=== PATIENT | male | born 2000 | race Hispanic/Latino ===

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

== ENCOUNTER 2022-10-03 05:23 | Emergency (ER) | payer MEDICAID, OTHER ==
[~2022-10-03] VITALS: Ht 177.8 cm; Wt 79.4 kg
[2022-10-03] MEDS ORDERED: FAMOTIDINE 20MG VIAL IV ONE (08:30)
[2022-10-03 08:36] LABS: BASOPHILS % (AUTO) 0.8 % (0.0-5.0); EOSINOPHILS % (AUTO) 3.8 % (0.0-8.0); MEAN CORPUSCULAR HEMOGLOBIN 29.7 pg (27.0-33.0); MEAN CORPUSCULAR VOLUME 87.6 fL (79-99); MONOCYTES % (AUTO) 6.2 % (3.0-13.0); NEUTROPHILS % (AUTO) 44.7 % (40.0-77.0); PLATELET COUNT (AUTO) 260 K/uL (130-400); RED BLOOD CELL COUNT(AUTO) 5.48 MIL/uL (4.50-6.20); RED CELL DISTRIBUTION WIDTH 11.9 % (11.0-15.5); WHITE BLOOD COUNT (AUTO) 7.9 K/uL (4.8-10.8)
[2022-10-03] MEDS: 0.9%NACL 1000ML 1,000 ML IV SCH ×2 (08:50→10:35)
[2022-10-03] MEDS ORDERED: 0.9%NACL 1000ML 1,000 ML IV SCH (09:00)
[2022-10-03 09:07] LABS: ALANINE AMINOTRANSFERASE 120 U/L (12-78); ALBUMIN 4.2 g/dL (3.5-5.0); ASPARTATE AMINOTRANSFERASE 38 U/L (10-37); CARBON DIOXIDE 32 mmol/L (21-32); CHLORIDE 102 mmol/L (101-111); CREATININE 0.8 mg/dL (0.5-1.5); GLOMERULAR FILTR. RATE CALC 128 mL/min (>90); GLUCOSE,RANDOM 94 mg/dL (70-105); SODIUM SERUM 139 mmol/L (136-145); TOTAL PROTEIN, SERUM 7.6 g/dL (6.0-8.3); UREA NITROGEN, BLOOD 11 mg/dL (7-18)
[2022-10-03 09:08] LABS: APPEARANCE,URINE CLEAR (CLEAR); BILIRUBIN,URINE NEGATIVE (NEGATIVE); COLOR,URINE LIGHT-YELLOW (YELLOW); GLUCOSE, URINE (UA) NEGATIVE (NEGATIVE); KETONES,URINE NEGATIVE (NEGATIVE); LEUKOCYTE ESTERASE ,URINE NEGATIVE Leu/uL (NEGATIVE); NITRATE,URINE NEGATIVE (NEGATIVE); OCCULT BLOOD,URINE NEGATIVE (NEGATIVE); PROTEIN,URINE NEGATIVE (NEGATIVE); UROBILINOGEN,URINE 0.2 mg/dL (0.2-1.0)
[2022-10-03 09:28] LABS: LIPASE < 50 U/L (114-286)
[2022-10-03] MEDS ORDERED: HYOS-28 PO (10:14)
[2022-10-03 10:25] VITALS: BP 130/83
== END 2022-10-03 10:30 | disposition home or self-care (01) ==
LOC: EDH 05:23
DX: R10.84 Generalized abdominal pain (principal); Z88.5 Allergy status to narcotic agent; Z90.89 Acquired absence of other organs
CPT/HCPCS: 99283; 96374; 96361; 80053; 83690; 85025; 81003; 36415; J3490; J7030